=== PATIENT | male | born 1975 | race African-American/Black ===

== ENCOUNTER 2017-08-13 08:11 | Emergency (ER) | payer BC ==
[~2017-08-13] VITALS: Ht 175.3 cm; Wt 93.0 kg
[2017-08-13] MEDS ORDERED: AMOXICILLIN500 MG ORAL (08:31)
[2017-08-13] MEDS ORDERED: IBUPROFEN600 MG ORAL (08:31)
[2017-08-13 08:38] VITALS: BP 159/97
[2017-08-13 08:39] VITALS: BP 159/97
--- NOTE | 2017-08-13 09:46 | Emergency Room Report ---
History of Present Illness General Chief Complaint: Sore Throat Source: Patient Present Illness HPI 42-year-old M with sore throat for 2 days. States he has been having pain with swallowing. Denies fever chills or cough. No sick contacts or recent travel. No change in voice. Difficulty swallowing but has been able to drink fluids without tissue Allergies: Coded Allergies: No Known Allergies (Unverified , 08/13/17) Patient History Past Medical History: see triage record Past Surgical History: none Pertinent Family History: none Reviewed Nursing Documentation: PMH: Agreed, PSxH: Agreed Nursing Documentation-PMH Past Medical History: No Stated History Review of Systems All Other Systems: negative except mentioned in HPI Physical Exam Vital Signs Date Time Temp Pulse Resp B/P (MAP) Pulse Ox O2 Delivery O2 Flow Rate FiO2 08/13/17 08:18 97.9 98 20 159/97 99 Room Air Sp02 EP Interpretation: reviewed, normal General Appearance: normal inspection, well appearing, no apparent distress, alert, GCS 15, non-toxic Head: normocephalic, atraumatic Eyes: bilateral eye normal inspection, bilateral eye PERRL, bilateral eye EOMI ENT: uvula midline, tonsillar swelling, pharyngeal erythema, tonsillar exudate , other - no signs of mud 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 Neck: normal inspection, full range of motion, supple Respiratory: normal inspection, lungs clear, normal breath sounds, no respiratory distress, no retraction, no wheezing, speaking full sentences, chest symmetrical Cardiovascular #1: normal inspection, regular rate, rhythm, normal capillary refill Cardiovascular #2: 2+ radial (R), 2+ radial (L) Gastrointestinal: normal inspection, non tender, soft, non-distended, no guarding Genitourinary: no CVA tenderness Musculoskeletal: normal inspection, back normal, normal range of motion, non- tender Neurologic: normal inspection, alert, oriented x3, responsive, motor strength/ tone normal, sensory intact, normal gait, speech normal Psychiatric: normal inspection, judgement/insight normal, memory normal Skin: normal inspection, normal color, no rash, warm/dry, well hydrated, normal turgor Medical Decision Making Diagnostic Impression: Primary Impression: Acute bacterial pharyngitis ER Course 42-year-old male with sore throat DDX: Viral vs. infectious mononucleosis vs. bacterial pharyngitis vs. allergies Other serious causes such as [employer] / RPA / deep space neck infection unlikely in this patient, given physical exam is likely secondary to bacterial pharyngitis Plan: Motrin, antibiotics ER course: Patient remains stable in ED. patient refused Motrin is here he took an hour ago Disposition: Patient will be discharged to home. Discharged with amoxicillin Patient will follow up with primary care doctor within 5 days. Strict return precautions discussed with patient such as worsening throat pain/swelling, dysphagia, high fever or chills, shortness of breath, abdominal pain, which may indicate severe illness. Patient verbalized understanding and agreed with plan. Please note that this Emergency Department Report was dictated using [employer] technology software, occasionally this can lead to erroneous entry secondary to interpretation by the dictation equipment. Last Vital Signs Date Time Temp Pulse Resp B/P (MAP) Pulse Ox O2 Delivery O2 Flow Rate FiO2 08/13/17 08:39 97.9 20 159/97 99 Room Air 08/13/17 08:18 98 Disposition: HOME, SELF-CARE Condition: Improved Scripts Ibuprofen* (MOTRIN*) 600 Mg Tablet 600 MG ORAL Q8H Y for For Pain, #30 TAB 0 Refills Prov: Olivia Baeza M.D. 08/13/17 Amoxicillin* (AMOXIL*) 500 Mg Capsule 500 MG ORAL BID for 10 Days, #20 CAP 0 Refills Prov: Olivia Baeza M.D. 08/13/17 Referrals: NOT CHOSEN IPA/,REFERRING Patient Instructions: Pharyngitis, [id number] Olivia Baeza M.D. Aug 13, 2017 09:46
== END 2017-08-13 08:39 | disposition home or self-care (01) ==
LOC: EMR 08:30
DX: J02.8 Acute pharyngitis due to other specified organisms (principal); B96.89 Other specified bacterial agents as the cause of diseases classified elsewhere
CPT/HCPCS: 99283